=== PATIENT | female | born 1940 | race Caucasian/White ===

== ENCOUNTER → 2021-10-01 09:28 | Outpatient (CLI) | payer OTHER, SELFPAY ==
[2021-10-01 10:28] LABS: Appearance Urine UA CLEAR; Bilirubin Urine UA NEGATIVE (NEGATIVE); Color Urine UA YELLOW; Glucose Urine UA NEGATIVE (Negative); Ketones Urine UA NEGATIVE (NEGATIVE); Leukocyte Esterase Urine UA NEGATIVE (NEGATIVE); Nitrite Urine UA NEGATIVE (Negative); Occult Blood Urine UA TRACE-INTACT (Negative); Protein Urine UA NEGATIVE (Negative); Specific Gravity Urine UA <=1.005 (1.000-1.035); Urobilinogen Urine UA 0.2 E.U./dL (0.2)
[2021-10-01 10:32] LABS: pH Urine UA 6.5 (4.5-8.0)
[2021-10-01 10:34] LABS: Add Manual Diff / Slide Review NO; Bacteria Urine None Seen; Basophils Absolute Auto 0 /uL (0-100); Basophils Percent Auto 0.2 % (0-2); Culture Indicated Urine Cult Not Indicated; Eosinophils Absolute Auto 200 /uL (0-450); Eosinophils Percent Auto 2.6 % (2-4); Hematocrit 39.3 % (36-46); Hemoglobin 13.2 g/dL (12.0-16.0); Lymphocytes Absolute Auto 1600 /uL (1100-4500); Lymphocytes Percent Auto 26.7 % (25-40); Mean Corpuscular HGB Conc 33.7 % (30-36); Mean Corpuscular Hemoglobin 29.1 PG (26-34); Mean Corpuscular Volume 86.5 fL (80-100); Monocytes Absolute Auto 500 /uL (0-900); Neutrophils Absolute Auto 3700 /uL (1500-7000); Neutrophils Percent Auto 61.5 % (50-75); Platelet Count 201 X10^3/uL (150-400); RBC Urine None Seen (0-5/HPF); Red Blood Cell Count 4.55 X10^6/uL (4.0-5.2); Red Cell Distribution Width 13.1 % (11.6-14.8); Urine Comments Microscopic Normal; WBC Urine None Seen (0-5/HPF)
[2021-10-01 10:36] LABS: Hemoglobin A1C% w Est Avg Glu 5.3 % (4.0-6.0)
[2021-10-01 10:53] LABS: BUN Creatinine Ratio 24.2 (6-22); Blood Urea Nitrogen 15 mg/dL (7-17); Calcium 9.9 mg/dL (8.4-10.2); Carbon Dioxide 31 mmol/L (22-32); Chloride 104 mmol/L (98-107); Estimated Glomerular Filt Rate > 60.0 mL/min (>60); Glucose 90 mg/dL (80-110); HEMOLYSIS < 15 (0-50); Potassium 4.3 mmol/L (3.4-5.1); Sodium 140 mmol/L (137-145)
== END ==
PROVIDERS: PCP Family Medicine; Referring Provider Orthopaedic Surgery; Visit Provider Orthopaedic Surgery
DX: Z01.818 Encounter for other preprocedural examination (principal); R73.9 Hyperglycemia, unspecified; Z01.812 Encounter for preprocedural laboratory examination; N39.0 Urinary tract infection, site not specified
CPT/HCPCS: 36415; 80048; 81001; 83036; 85025; 93005; 93010

== ENCOUNTER → 2021-11-29 13:37 | Outpatient (CLI) | payer OTHER, SELFPAY ==
[2021-11-29 16:16] LABS: COVID19 -Nasal RAPID Negative (Negative)
== END ==
PROVIDERS: PCP Family Medicine; Visit Provider Physical Medicine & Rehabilitation
DX: Z20.822 Contact with and (suspected) exposure to COVID-19 (principal)
CPT/HCPCS: 87635; C9803

== ENCOUNTER 2021-11-30 08:20 | Day surgery (SDC) | payer OTHER, SELFPAY ==
[2021-11-25 09:49] VITALS: BMI 23.8
[2021-11-30] VITALS (10 sets, daily range): BP systolic 100–156; BP diastolic 57–74; PULSE 52–102; RESP 12–22; TEMP 35.8–36.8; O2SAT 96–100; BMI 23.8
--- NOTE | 2021-11-30 07:37 | DI.RAD.S_ITS ---
PROCEDURE: XR HIP W PEL IF DONE RT 2V INDICATIONS: Right ELVIN, anterior TECHNIQUE: 4 views of the hip were acquired. COMPARISON: [facility], [place], XR HIP W PEL IF DONE RT 2V, 11/30/2021, 14:18. FINDINGS: Right hip arthroplasty projects in the expected location. Clips in the region of the pubic symphysis. IMPRESSION: Intraoperative guidance provided for right hip arthroplasty. Dictated by: Walter Loera M.D. on 11/30/2021 at 14:50 Approved by: Walter Loera M.D. on 11/30/2021 at 14:51
[2021-11-30] MEDS: LACTATED RINGERS 1,000 ML 42 ML IV ×2 (09:05→14:33)
[2021-11-30] MEDS: ACETAMINOPHEN 325 MG TABLET 975 MG PO (09:11)
[2021-11-30] MEDS: CELECOXIB 200 MG CAPSULE PO (09:11)
[2021-11-30] MEDS: VANCOMYCIN 1,000 MG/200 ML PIGGYBACK 200 MG IV (09:58)
--- NOTE | 2021-11-30 10:49 | PM.PREOP ---
Pre-operative Note COVID-19 COVID-19 status: Negative Interval Note History & Physical reviewed/Exam performed by Physician: Yes Changes to H&P: No
--- NOTE | 2021-11-30 10:50 | PM.OP.1 ---
Operative Date/Time/Diagnoses Date of procedure: 11/30/21 Time of procedure: 11:20 Pre-op diagnosis: right hip OA Post-op diagnosis: same Procedure & Clinicians Procedure: Right total hip arthroplasty anterior approach Same procedure as scheduled: Yes Indications: The patient has had progressively worsening right hip pain with radiographic changes consistent with arthritis. Non-operative management has failed and the patient has requested total hip replacement. The risks, benefits and alternatives to surgery were discussed with the patient prior to proceeding. Risks discussed included, but were not limited to, failure to relieve pain, leg length discrepancy, dislocation, stiffness, infection, nerve damage, deep venous thrombosis, pulmonary embolism, stroke, coma, heart attack, permanent paralysis and , as well as the potential need for eventual revision of the prosthetic. Surgeon: Aimee Lind Switchboard Operator Assistant: Arabella Chopra Anesthesia Type: General and Spinal Operative Notes Findings: Severe right hip osteoarthritis, adequate bone and stability Closure Type: primary Specimen(s): none sent Prosthetic devices, grafts, tissues, transplants, or devices: [employer] anthology standard offset size femur 7, 54mm R3 , -3 by 36mm oxinium, neutral poly, one 6.5mm screw Estimated Blood Loss (mL): 250 Blood products transfused: none Procedure in detail: The patient was brought to the operating room. Patient was carefully positioned in the supine position. Time-out was performed and antibiotics were given. Anesthesia was induced. She was positioned in the on the table in order to allow hyperextension of the hip. The right lower extremity was prepped and draped in a standard sterile fashion. An anterior right hip incision was made 1 fingerbreadth lateral to the anterior superior iliac spine and extended distally towards the greater trochanter. Dissection was carried out through skin and subcutaneous tissues. Superficial hemostasis was achieved. The fascia over the tensor fascia sharon was defined and incised with a knife. Two Allis clamps were used to grasp the fascia. Tensor fascia sharon was retracted laterally. A gelpi retractor was placed. Dissection was carried out down along the neck. The circumflex vessels were carefully identified and cauterized with the Aqua Mantis. There was good visualization of the femoral neck. A Cobra was placed superior to the neck and the gluteus fibers were carefully stripped from that superior aspect of the capsule. A 2nd retractor was placed along the inferior aspect of the neck. The rectus insertion along the capsule was partially released. A 3rd retractor that was then gently placed over the rim of the acetabulum under the rectus. Capsule was carefully incised and released from the intertrochanteric line circumferentially superior to the mid sagittal line and inferiorly to the mid sagittal line until the lesser trochanter was palpable. A tag stitch was placed both in the superior and inferior limb of the capsular insertion. Along the acetabulum capsule was also released up to the mid sagittal 12:00 position. A portion of the labrum was resected. A saw was used to perform an osteotomy at the level of the intertrochanteric line and the junction of the superior femoral neck leaving approximately 1 finger breath of residual inferior neck above the lesser trochanter. A 2nd cut was made along the femoral neck at the base of the head and a napkin ring of neck was removed. Corkscrew was placed in the femoral head and the head was removed without difficulty. Retractors were then repositioned around the acetabulum. Residual labrum was resected and additional osteophytes were removed. A reamer that was 4 mm below the templated size was placed by hand in the acetabulum and it was reamed to centralize the acetabulum. It was then reamed up to 2 under the templated size and fluoroscopy was brought in to confirm the position of the reaming and depth of reaming. I reamed 1 under the anticipated size. A trial cup was placed and noted that it was appropriately sized and fluoroscopy confirmed position and depth. The component was open and inserted without difficulty fluoroscopic imaging was used to confirm that the cup had been adequately seated and was well positioned. It was further stabilized with a single screw. Neutral poly liner was placed. The cup was tested and noted to be stable. Attention was then directed to the femur. The femur was gently hyperextended additional capsular release was performed as needed in order to allow adequate visualization of the proximal femur with elevation of the femur. Patient was placed in a hyperextended slightly adducted position with maximum external rotation. Box osteotome was used to check for any residual neck as well as sclerotic bone along the trochanter. [place] pepper was placed in the femur. Additional broaching was performed. Canal finder was used to determine the alignment of the canal and position. Size 1 broach was placed. The canal was then appropriately broached up to the templated size as long as there was adequate stability of the broach and serial advancement of the broach without excessive impingement. Specific attention was directed at avoiding varus attempting to direct the distal aspect of the broach more anteriorly and avoiding excessive anteversion. Trial reduction showed acceptable range of motion, good stability, no posterior impingement, baptism of leg length and appropriate lateral shuck. I also hyperflexed the hip and checked that there was no impingement anteriorly and there was good stability with flexion, adduction and internal rotation. Marcaine and Exparel were injected. The stem was placed without difficulty. Repeat trial reduction and x-ray showed acceptable overall position, length, and no evidence of the femoral fracture. Final head was placed. Wound was meticulously irrigated with normal saline. The hip was reduced and additional Exparel and Marcaine were injected. The capsule was closed with interrupted nonabsorbable sutures. The fascia of the tensor was closed with interrupted and running Vicryl. No drain was placed. Any tensor fascia sharon muscle that appeared to be contused or injured which was a minimal amount was carefully resected. Capsule around the tensor was injected with Exparel and Marcaine. The skin was closed with barbed stitches for the subcutaneous tissue and skin. We also used surgical glue. The wound was dressed sterilely. Brief Betadine soak was also used and was meticulously irrigated with normal saline. Patient was transferred to recovery room in satisfactory condition. Complications: none Post-operative Condition: stable Disposition: Acute Care Plan for aftercare: The patient will be maintained on a standard total hip replacement protocol with weight bearing as tolerated and anterior hip precautions. The patient will receive Aspirin and sequential compression devices for DVT prophylaxis. The patient will be discharged home when safe for the home environment.
[2021-11-30] MEDS: CEFAZOLIN 2 GM/20 ML SYRINGE IV ×2 (11:28→21:00)
[2021-11-30] MEDS: TRANEXAMIC ACID 1,000 MG VIAL 2000 MG INJ ×2 (11:28→13:33)
--- NOTE | 2021-11-30 11:41 | SUR.OPER ---
Patient supine on padded [place] table, one arm on padded arm board at <90, other arm padded and secured with tape across patient's chest, both legs secured in padded traction boots and positioned per surgeon, padded post at patient's groin, pressure points checked and padded.
[2021-11-30] MEDS: BUPIVACAINE LIPOSOME 266 MG/20 ML VIAL INJ (11:45)
[2021-11-30] MEDS: SODIUM CHLORIDE IRRIG SOLUTION 250 ML, POVIDONE-IODINE SPONGE STICKS 1 APPLIC IRR (11:46)
[2021-11-30] MEDS: BUPIVACAINE 0.25% (PF) 60 ML, EPINEPHrine 0.3 MG INJ (11:46)
--- NOTE | 2021-11-30 14:08 | DI.RAD.S_ITS ---
PROCEDURE: XR HIP W PEL IF DONE RT 2V INDICATIONS: TOTAL ANTERIOR HIP REPLACEMENT RIGHT TECHNIQUE: 2 view(s) of the hip acquired. COMPARISON: [facility], [place], XR HIP W PEL IF DONE RT 2V, 11/30/2021, 12:34. FINDINGS: Bones: Patient is status post right hip arthroplasty, with hardware components in expected positions. The hip joint appears congruent. The visualized bony structures appear intact. Moderate left degenerative hip joint space narrowing. Soft tissues: Overlying postoperative changes are noted. No suspicious soft tissue densities. IMPRESSION: Right hip arthroplasty as above. Dictated by: Ilda Marroquin M.D. on 11/30/2021 at 16:55 Approved by: Ilda Marroquin M.D. on 11/30/2021 at 16:55
[2021-11-30] MEDS: LACTATED RINGERS 1,000 ML 125 ML IV (15:38)
[2021-11-30] MEDS: ACETAMINOPHEN 325 MG TABLET 650 MG PO ×2 (15:38→20:58)
[2021-11-30] MEDS: IBUPROFEN 400 MG TABLET PO ×2 (16:09→20:59)
[2021-11-30] MEDS: OXYCODONE IR 5 MG TABLET 10 MG PO (16:10)
[2021-11-30] MEDS: ONDANSETRON 4 MG/2 ML INJ IV (20:44)
[2021-11-30] MEDS: NITROFURANTOIN ER 100 MG CAPSULE PO (20:58)
[2021-11-30] MEDS: diphenhydrAMINE 25 MG TABLET PO (20:59)
[2021-11-30] MEDS: ASPIRIN EC 81 MG TABLET PO (20:59)
[2021-11-30] MEDS: DOCUSATE 100 MG CAPSULE PO (20:59)
[2021-12-01] MEDS: IBUPROFEN 400 MG TABLET PO ×3 (00:21→08:38)
[2021-12-01] MEDS: OXYCODONE IR 5 MG TABLET PO (00:21)
--- NOTE | 2021-12-01 02:26 | RT ---
PT ASLEEP MINIMAL ASSESSMENT DONE
[2021-12-01] MEDS: CEFAZOLIN 2 GM/20 ML SYRINGE IV (04:31)
[2021-12-01 05:37] LABS: Hematocrit 30.3 % (36-46); Hemoglobin 10.4 g/dL (12.0-16.0)
[2021-12-01 06:11] VITALS: BP 109/56; PULSE 61; RESP 16; TEMP 36.7; O2SAT 100
[2021-12-01 07:00] VITALS: BP 117/64; PULSE 64; RESP 16; TEMP 36.6; O2SAT 97
[2021-12-01] MEDS: ASPIRIN EC 81 MG TABLET PO (08:38)
[2021-12-01] MEDS: SERTRALINE 50 MG TABLET PO (08:38)
[2021-12-01] MEDS: ACETAMINOPHEN 325 MG TABLET 650 MG PO (08:38)
[2021-12-01] MEDS: LEVOTHYROXINE 88 MCG TABLET PO (08:44)
--- NOTE | 2021-12-01 09:20 | PT.IIE ---
Current Diagnoses Unilateral primary osteoarthritis, right hip (11/30/21) Surgery Performed Operation Date: 11/30/21 10:45 Actual Procedures p Total Hip Arthroplasty/Anterior Approach(Right) - Aimee Lind MD Medical History (Last Updated 11/25/21 @ 12:40 by Shelby Gray RN) Anxiety Arrhythmia Bowel obstruction (1985) Breast cancer, left (2015) CAD (coronary artery disease) Disorder Diverticulitis Easy bruisability Elevated cholesterol HLD (hyperlipidemia) HTN (hypertension) Hypothyroidism Nephrolithiasis SCC (squamous cell carcinoma) (11/17/21) Vertigo (2021) Vestibular neuritis (11/2021) Physical Therapy Inpatient Evaluation/Re-Eval M1 PT/OT-IP Prior Functional Status Start: 12/01/21 14:01 Freq: NEEDED Status: Active Protocol: Document 12/01/21 09:20 AB (Rec: 12/01/21 14:12 AB [id number]) Medical Review Prior Functional Status Medical History Reviewed Yes Communication able to make needs known Mobility and Gait pt stated that she is independent with all mobilities and ambulation without AD Social History Household Members spouse Living Arrangements House Number of Floors (Floors) One Floor Number of Stairs To Enter/Railing? no steps to enter Home Environment Standard Height Toilet,Walk in Shower,Built-In Shower Seat Home Equipment Front Wheel Walker,Grab Bars Near Toilet,Grab Bars In Shower M2 PT-IP Current Condition Start: 12/01/21 14:01 Freq: NEEDED Status: Active Protocol: Document 12/01/21 09:20 AB (Rec: 12/01/21 14:12 AB [id number]) Physical Therapy Current Condition Current Condition Evaluation Date 12/01/21 Treatment Diagnosis s/p R ELVIN anterior approach; difficulty in walking Onset Date 11/30/21 M3 PT-IP Subjective Start: 12/01/21 14:01 Freq: NEEDED Status: Active Protocol: Document 12/01/21 09:20 AB (Rec: 12/01/21 14:12 AB [id number]) Subjective Physical Therapy Visit Type Type Initial Evaluation Visit Start Time 09:20 Visit Stop Time 10:00 Total Visit Minutes 40 Number of DELIMBER OPERATOR Visits 0 Physical Therapy Visit Comments Patient Comments agreeable to do PT Therapy Pain Assessment Pain When Pain Assessed At Rest Pain Present Pain Present Pain Reported Location Right Hip Intensity 5 Scale Used Numeric (0 - 10) Pain Management Techniques Distraction,Modification of Treatment,Re-positioning, Timing of Activity with Medications M4 PT-IP Mobility and Gait Start: 12/01/21 14:01 Freq: NEEDED Status: Active Protocol: Document 12/01/21 09:20 AB (Rec: 12/01/21 14:12 AB [id number]) PT-Bed Mobility Assessment Supine to Sit Supine to Sit Standby Assistance Sit to Supine Sit to Supine Standby Assistance PT-Transfer Assessment Sit to and From Stand Sit to and from Stand Standby Assistance,1 Person Assistance,Use of Upper Extremities Equipment Transfer Assistive Device Gait Belt,Front Wheeled Walker Orthotic/Prosthetic Devices or Brace: No Transfers Transfer Destination Chair Transfer Technique Stand Step Pivot Transfer Ability Level of Assist Standby Assistance,Contact Guard Assistance,1 Person Assistance,Use of Upper Extremities Comments Mobility Comments educated pt on anterior hip precautions. pt sitting on chair. completed sit to stand CGA and step transfer to bed SBA to cGA. completed sit <> supine SBA. completed sit to stand SBA and ambulated in room ~ 60 ft using FWW SBA to occasional CGA and cues. pt sat back on the chair. positioned. call light and table placed within reach. pt initially requires cues for hip precautions during mobility but able to complete towards the end of session without cues. Gait Assessment Gait Gait Assistance Required: Standby Assistance,Contact Guard Assist Distance (Feet) 60 Able to Maintain Weight Bearing Status Yes During Gait Assistive Devices Assistive Device Gait Belt,Front Wheeled Walker Orthotic/Prosthetic Devices or Brace: No Gait Deviations General Gait Pattern Decreased Stride Length, Decreased Feet Clearance Factors Limiting Gait Function Factors Limiting Gait Function Decreased Activity Tolerance, Decreased Strength,Pain,Poor Balance,Poor Safety Awareness PT-Balance Assessment Sitting Balance and Reactions Static Sitting Balance Ability Good Dynamic Sitting Balance Ability Good Standing Balance and Reactions Static Standing Balance Ability Fair Dynamic Standing Balance Ability Fair Device Used FWW M5 PT-IP Objective Assessments Start: 12/01/21 14:01 Freq: NEEDED Status: Active Protocol: Document 12/01/21 09:20 AB (Rec: 12/01/21 14:12 AB [id number]) Orientation Orientation/Cognition Level of Alertness Alert Orientation Name,Place,Situation Language Function Ability No Deficits Noted Safety Awareness Decreased Safety Awareness Memory Description Short Term Impaired Gross Range of Motion Lower Extremity ROM Assessment Within Functional Limits Strength Lower Extremity Strength Assessment Right Impaired Hip 3+/5 Knee 4-/5 Coordination Assessment Gross Coordination Gross Coordination WNL Sensation Assessment Sensation Gross Sensation WNL Muscle Tone Muscle Tone WNL Yes M6 PT-IP Treatment Start: 12/01/21 14:01 Freq: NEEDED Status: Active Protocol: Document 12/01/21 09:20 AB (Rec: 12/01/21 14:12 AB [id number]) Physical Therapy Treatment Education Education Provided Precautions,Weight Bearing Status,Post-Op Packet,Safety M7 PT-IP Assessment and Plan Start: 12/01/21 14:01 Freq: NEEDED Status: Active Protocol: Document 12/01/21 09:20 AB (Rec: 12/01/21 14:12 AB [id number]) PT Summary Assessment and Plan Potential Rehabilitation Potential Good Status of Condition at Evaluation Stable Summary Impairments Pain,ROM,Strength,Balance, Coordination,Cognition,Bed Mobility,Transfers,Gait, Activity Tolerance Assessment Summary pt requiring SBA to CGA with mobility and plans to go home with spouse to assist her. pt may go home when medically stable. pt stated that she has outpt PT scheduled already. Goals Bed Mobility Goal Independent Transfer Goal Independent,Front Wheeled Walker Gait Goal Independent,Front Wheel Walker Gait Distance 250 Days to Meet Goals 3 Frequency of Treatment Frequency Of Treatment Twice a Day Treatment Plan Physical Therapy Treatment Plan Bed Mobility Training,Transfer Training,Gait Training, Therapeutic Exercise,Balance Retraining,Post Op Education, Discharge Planning,Hot or Cold Pack,Neuromuscular Re-ed, Coordination Retraining,Manual Therapy Precautions Anterior Hip Precautions No Hip Extension,No Hip External Rotation Weight Bearing Status Weight Bearing Status Weight Bear as Tolerated Allowed Weight Bearing Amount (enter % RLE WBAT or #) (%) Recommendations To Nursing Amount of Assist Needed 1 Person Assist Discharge Recommendations PT Discharge Recommendations Home with Assistance, Outpatient PT Transportation Needs at Discharge Private Vehicle
--- NOTE | 2021-12-01 09:21 | CM.DANOTE ---
DCP: Case received, EMR reviewed and met with patient. Introduced self and role. Was able to obtain information regarding patient's baseline activity status at home prior to her surgery. DCP assessment completed with information currently available. Patient is a 81 year old female who admitted yesterday morning to the care of the orthopedic team. PCP: Dr. Barahona. Payer: confirmed: [employer]age. Patient came to the hospital via private vehicle for a surgical procedure. Patient had a total hip replacement. Patient has history of right hip osteoarthritis. Met with patient in her room. She is alert and oriented. She was sitting up in her chair. Confirmed with patient that she resides in [place] with her spouse, Ulysses Main. She indicated that at her baseline she is independent. P: Patient is to be discharged home today, but will need to be cleared by P.T. Ira Talavera RN/Horse Doctor Discharge Planning/Care Management Advanced directive, confirm from FAMILY Start: 11/30/21 15:37 Freq: Q24H Status: Active Protocol: Document 11/30/21 15:37 BT (Rec: 11/30/21 15:51 BT [id number]) Advance Directive, confirm on record Time 15:51 Person contacted Zuleima Grimm Copy received No CM Discharge Assessment Start: 12/01/21 09:19 Freq: Status: Active Protocol: Document 12/01/21 09:19 (Rec: 12/01/21 09:21 [id number]) Discharge Planning Assessment Assigned Typesetter Apprentice Ira Talavera RN/Horse Doctor Advance Directives? Yes Advance Directives on File No History Provided By Patient,Medical Record Prior Living Arrangements House Household Members spouse Type of transporation used prior to Drives own vehicle admit Independent with ADL's Yes Is patient alert and oriented? Yes Caregiver for Another No Barriers to Discharge No Discharge Plan Home Transportation Arrangement Spouse Referrals Initiated None needed Whiteboard Updated in Patient Room with Yes name and ext. # of Typesetter Apprentice Review Status In Process Next Review Type Continued Stay Review Pre-Anesthesia Assessment Start: 11/25/21 09:49 Freq: Status: Active Protocol: Document 11/25/21 09:49 CAB (Rec: 11/25/21 10:27 CAB [id number]) Pre-Anesthesia Assessment Patient Information Reviewed Via Phone Assessment Assessment Completed With Patient H&P Completed Within 30 Days Yes Diagnostic Results BMP/CMP,CBC,EKG,Urinalysis Comment Labs/ECG @ [facility] 10/01/21, COVID screen @ [facility]-needs to schedule Primary Care Provider Maria Esther Barahona Seen Specialist in Last 12 Months Yes Specialist Seen Rubble Placer,Food Assembler, Oncologist,Orthopedist Primary Language Angolan Buckle Assembler Required No Height 5 ft 6.5 in Weight 150 lb Body Mass Index (BMI) 23.8 Hearing Ability Normal Visual Assist Glasses Dentition Type Teeth, Natural Present Barriers to Learning None Hx Anesthesia Reactions No Hx Family Anesthesia Reaction No Hx Malignant Hyperthermia No Hx Blood Transfusions No Anesthesia Review Requested No Consulting Senior Practice Director No alcohol intake current alcohol intake frequency a few times a week Smoking Status Former smoker how long ago did patient quit smoking Quit 1999 Substance Use Type does not use Pain Present Pain Reported Musculoskeletal Symptoms Abnormal Gait,Difficulty Walking,Joint Pain History of Falling (Recent or History of No ) Patient is completely paralyzed or No completely immobile Mental Status Oriented to own ability Is patient on oxygen? No Does patient have ENRIQUEZ/SOB No Hx Sleep Apnea No Currently Taking a Beta Don No Hx Chest Pain No Hx SOB No Hx Syncope or Dizziness Yes: Vertigo-Vestibular neuritis Anti-Coagulant Therapy No Has a Rubble Placer Yes: Dr. Leblanc-visit 02/05/21 Cardiac Testing No Hx Pacemaker/ICD No Pacemaker Rep Required? No Comment Cardiac records scanned Diet Type At Home Regular dysphagia No Gastrointestinal Symptoms Constipation Bladder Pattern Frequency Urinary Catheter Present No Hx Urinary Self Catheterization No Diabetes No HgbA1C 5.3 Date 10/01/21 Patient No Lactating No Presence of External or Internal Medical Yes: Bilat eye IOLs Devices Have you had any close contact with No someone diagnosed with COVID-19? Received a COVID vaccine? Yes Received all doses? Yes Marital Status Lives With spouse Prior Living Arrangements House Number of Floors (Floors) One Floor Support System Spouse Does the Patient Have Assistance After Yes Surgery Patient Discharge Plan Description Return Home Comment Pt advised one night length of stay per surgeon Feels Safe in Current Environment Yes Been Physically Hurt or Threatened By a No Person in Current Environment Do you have thoughts of harming yourself None or others? Are you currently considering suicide? No Do you have a plan to hurt yourself or No Plan others? Do You Have Any Spiritual Beliefs That No May Affect Your HC Choices? Do You Have Any Cultural Practices That No May Affect Your HC Choices? Who Can We Speak to About Patient's Care Family, friends Identifying Code for Release of Patient Declines to issue Information Health Care Proxy/Next of Kin Heaven (daughter) Health Care Proxy Emergency Contact Name Heaven (daughter) Emergency Contact Advance Directives? Yes Advance Directives on File No Requested Patient Bring Advanced Yes Directives DOS Power of Greenskeeper Yes Power of Greenskeeper Name Estefany (daughter) Power of Greenskeeper PAC Instructions Do not shave/clip surgical site,Durable medical equipment ,Medications to take/avoid, Nasal antibiotic,No ETOH/ petroleum product on skin DOS, NPO,Pre-surgical wash,Sensory aids,Sturdy shoes/comfortable clothes,Do not bring valuables and remove jewelry
--- NOTE | 2021-12-01 10:39 | PC.NURSE ---
Addendum entered by Cecily Mccabe R.N. 12/01/21 11:53: Pt ride here Escorted by staff via W/C to waiting vehicle D/C in stable condition. Original Note: Pt received discharge orders, SL discontinued intact. Home instructions given w/understanding. Awaiting ride . Call light w/in reach, sitrting in chair,
--- NOTE | 2021-12-01 14:12 | PM.DS.1 ---
History of Present Illness History of Present Illness Date Patient Seen: 12/01/21 Time Patient Seen: 08:30 Chief complaint: Hip pain Narrative: Patient's pain is well controlled. Denies fever chills. No nausea vomiting. Discharge Providers Provider Discharge Date: 12/01/21 Primary care physician: Maria Esther Barahona MD Consults: 11/30/21 07:37 Consult to Anesthesiology Routine Comment: Consulting Provider: Anesthesiologist Reason for consultation: Regional block for post operative pain control 11/30/21 14:43 Consult to Discharge Planning Routine Comment: Consult to Physical Therapy Evaluate & Treat Comment: Physician Instructions: post op ELVIN protocol Consult to Respiratory Therapy Evaluate & Treat Comment: Physician Instructions: Evaluate and treat Discharge provider: Eduar Irby PA-C Summary Hospital Course Discharge Diagnosis: Right hip osteoarthritis Hospital Course: Right total hip arthroplasty anterior approach Same procedure as scheduled: Yes Indications: The patient has had progressively worsening right hip pain with radiographic changes consistent with arthritis. Non-operative management has failed and the patient has requested total hip replacement. The risks, benefits and alternatives to surgery were discussed with the patient prior to proceeding. Risks discussed included, but were not limited to, failure to relieve pain, leg length discrepancy, dislocation, stiffness, infection, nerve damage, deep venous thrombosis, pulmonary embolism, stroke, coma, heart attack, permanent paralysis and , as well as the potential need for eventual revision of the prosthetic. Surgeon: Aimee Lind Nursing Service Administrator: Arabella Chopra Anesthesia Type: General and Spinal Operative Notes Findings: Severe right hip osteoarthritis, adequate bone and stability Closure Type: primary Specimen(s): none sent Prosthetic devices, grafts, tissues, transplants, or devices: [employer] standard offset size femur 7, 54mm R3 , -3 by 36mm oxinium, neutral poly, one 6.5mm screw Estimated Blood Loss (mL): 250 Blood products transfused: none Patient admitted to the hospital for right total hip arthroplasty, anterior approach obtained. Patient taken operating room underwent right total hip arthroplasty November 30, 2021. Patient back in her room recovering well and is in stable condition. Exam Vital Signs (past 8 hours): - 12/01/21 07:00 Temperature 97.8 F Pulse Rate 64 Respiratory Rate 16 Blood Pressure 117/64 Pulse Oximetry 97 Oxygen Delivery Method Room Air Oxygen Flow Rate 0 Narrative Exam Narrative: 81-year-old female in no apparent distress. Neurovascular status is intact bilateral lower extremities. Dressing is Clean, dry, intact.. 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) Vertigo (2021) Vestibular neuritis (11/2021) Surgical History History of colon resection (1985) History of hysterectomy History of surgery (2005) History of surgery Hx of bilateral cataract extraction Hx of bilateral mastectomy Hx of colectomy (~1998) Social History household members: spouse Smoking Status: Former smoker alcohol intake: current Discharge Assessment & Plan Assessment and Plan Assessment: Patient progressing as expected status post total hip arthroplasty Plan of Treatment: Discharge home today in stable condition Discharge Plan Discharge Plan Patient Disposition: Home Discharge orders & Medications Discharge Orders: Discharge (Order); Ordered 12/01/21 Ordered By: Eduar Irby Prescriptions: New acetaminophen 325 mg Tablet 650 mg PO TID Qty: 60 0RF aspirin 81 mg Tablet,Delayed Release (Dr/Ec) 81 mg PO BID Qty: 60 0RF ibuprofen 400 mg Tablet 400 mg PO Q4HR Qty: 30 0RF docusate sodium 100 mg Capsule 100 mg PO BID Qty: 20 0RF oxycodone 5 mg Tablet 5 mg PO Q3HR PRN (Reason: Pain, Moderate (4-6)) Qty: 60 0RF Continued alendronate 70 mg Tablet 70 mg PO QWEEK 0RF Label Comments: Takes every Monday aspirin 81 mg Tablet,Delayed Release (Dr/Ec) 81 mg PO DAILY 0RF levothyroxine 88 mcg Tablet 88 mcg PO DAILY 0RF nitrofurantoin macrocrystal 100 mg Capsule 100 mg PO BEDTIME 0RF Rx Instructions: must administer with a meal/food diphenhydramine-acetaminophen [Acetaminophen PM] 25-500 mg Tablet 1 tab PO BEDTIME 0RF Rx Instructions: administer while awake sertraline 50 mg Tablet 50 mg PO DAILY 0RF Follow up/Referrals: Maria Esther Barahona MD [Primary Care Provider] - Aimee Lind MD [Physician] - (2 weeks) Diet/Activity/Treatments Diet: Diet as Tolerated Activity: Weight-bearing as tolerated, anterior hip precautions Cold/Heat Therapy: Ice to hip as needed Skin/Wound/Dressing Care Report to your healthcare provider any signs of infection, such as:: chills, fever, increased pain, unusual drainage and unusual redness Dressing: Keep dressing clean and dry Visit Report/Discharge Packet Instructions: DI for Hip Replacement Stand Alone Forms: Surgery Discharge Discharge Data Primary Care Provider: Maria Esther Barahona Attending Provider: iAmee Lind Quality VTE Deep Vein Thrombosis/Pulmonary Embolism Present on Admission: No
== END 2021-12-01 11:54 | disposition home or self-care (01) ==
LOC: OR 08:22 → AC 11:07
PROVIDERS: PCP Family Medicine; Referring Provider Orthopaedic Surgery; Visit Provider Orthopaedic Surgery
PROC: (CPT 27130; principal; 2021-11-30 10:45)
DX: M16.11 Unilateral primary osteoarthritis, right hip (principal); I10 Essential (primary) hypertension; E03.9 Hypothyroidism, unspecified; I25.10 Atherosclerotic heart disease of native coronary artery without angina pectoris
CPT/HCPCS: 27130; 36415; 73502; 76000; 85014; 85018; 97161; 97530; C1776; C9290; J0171; J0690; J2250; J2405; J2704; J3010